=== PATIENT | female | born 1945 ===

== ENCOUNTER 2017-10-22 12:52 | Outpatient (CLI) | payer OTHER | END 2017-10-22 13:01 | disposition home or self-care (01) | LOC: MAMO-SONO 12:52 | DX: Z12.31 Encounter for screening mammogram for malignant neoplasm of breast (principal); Z87.898 Personal history of other specified conditions; N60.19 Diffuse cystic mastopathy of unspecified breast ==

== ENCOUNTER 2017-11-18 10:18 | Outpatient (CLI) | payer OTHER | END 2017-11-18 10:37 | disposition home or self-care (01) | LOC: NUCLEAR 10:18 | DX: M81.0 Age-related osteoporosis without current pathological fracture (principal) ==